=== PATIENT | female | born 1955 | race Caucasian/White ===

== ENCOUNTER 2017-08-05 11:55 | Emergency (ER) | payer OTHER ==
[~2017-08-05] VITALS: Ht 157.4 cm; Wt 79.8 kg
[2017-08-05] MEDS ORDERED: NORCO 5-325 TA1 EACH PO (13:54)
[2017-08-05] MEDS ORDERED: 'PARAFON FORTE500 M1 PO (13:54)
== END 2017-08-05 14:07 | disposition home or self-care (01) ==
LOC: ED 11:55
DX: S22.42XA Multiple fractures of ribs, left side, initial encounter for closed fracture (principal); S13.9XXA Sprain of joints and ligaments of unspecified parts of neck, initial encounter; S80.212A Abrasion, left knee, initial encounter; S60.512A Abrasion of left hand, initial encounter; S60.511A Abrasion of right hand, initial encounter; R51 Headache; R91.1 Solitary pulmonary nodule; X58.XXXA Exposure to other specified factors, initial encounter; Y93.89 Activity, other specified; Y92.89 Other specified places as the place of occurrence of the external cause; Y99.8 Other external cause status

== ENCOUNTER 2020-03-12 15:26 | Inpatient (IN) | payer OTHER ==
[~2020-03-12] VITALS: Ht 160 cm; Wt 51.3 kg
[~2020-03-12 15:26] MED LIST: 'PARAFON FORTE500 M1 PO; NORCO 5-325 TA1 EACH PO
[2020-03-12 15:32] VITALS: BP 138/58
[2020-03-12 15:48] LABS: HEMATOCRIT 33.5 % (37.0-47.0); MEAN CELL VOLUME 93.6 fl (81.0-99.0); MEAN CORPUSCULAR HGB CONC 33.1 g/dl (33.0-37.0); MEAN PLATELET VOLUME 10.7 fl (9.6-12.3); PLATELET COUNT AUTOMATED 318 10*3/uL (130-400); RED BLOOD COUNT 3.58 10*6/uL (4.10-5.10); RED CELL DISTRI WIDTH 12.8 % (0-14.5); WHITE BLOOD COUNT 21.3 10*3/uL (4.8-10.8)
[2020-03-12 16:00] VITALS: BP 137/44
[2020-03-12 16:07] LABS: ALBUMIN 3.1 gm/dl (3.1-4.5); ALKALINE PHOSPHATASE 75 U/L (45-117); BUN 79 mg/dl (7-24); CHLORIDE 95 mmol/L (98-107); CREATININE 1.51 mg/dL (0.55-1.02); POTASSIUM 5.4 mmol/L (3.5-5.1); SGOT/AST 9 IU/L (3-35); SGPT/ALT 19 U/L (12-78); SODIUM 128 mmol/L (136-145); TOTAL PROTEIN 6.3 gm/dL (6.4-8.2)
[2020-03-12 16:10] LABS: PLATELET SUFFICIENCY NORMAL (NORMAL); TOTAL CELLS COUNTED 100 #CELLS
[2020-03-12 16:20] LABS: TROPONIN I < 0.015 ng/ml (<0.045)
[2020-03-12 16:30] VITALS: BP 136/52
[2020-03-12 17:30] VITALS: BP 153/71
[2020-03-12 17:40] LABS: BILIRUBIN NEGATIVE (NEGATIVE); BLOOD NEGATIVE (NEGATIVE); CLARITY CLEAR (CLEAR); COLOR YELLOW (YELLOW); GLUCOSE 3+ (NEGATIVE); KETONE 3+ (NEGATIVE); LEUKO ESTERASE NEGATIVE (NEGATIVE); NITRITE NEGATIVE (NEGATIVE); SPECIFIC GRAVITY 1.015 (1.005-1.030); UROBILINOGEN 0.2 E.U./dl (0.2-1.0)
[2020-03-12 17:41] LABS: WBC 0-2 wbc/hpf (0-5)
[2020-03-12 17:42] LABS: BACTERIA TRACE
[2020-03-12 18:00] VITALS: BP 144/87
--- NOTE | 2020-03-12 18:29 | NUR ---
PATIENT PROVIDED BED BATH BY THIS RN
--- NOTE | 2020-03-12 18:33 | NUR ---
SCATTERED SCABS TO BUE. SKIN TEAR TO RIGHT FOREARM. RASH TO BUTTOCKS. PATIENT REFUSING PHOTOS OF THESE AREAS.
[2020-03-12 19:37] VITALS: BP 124/57
--- NOTE | 2020-03-12 19:37 | NUR ---
A 64, admitted to ICCU, under the services of LIDIA Lovell DO with a diagnosis of DKA. Chief complaint is noncompliance with insulin x 4 months, acetone on breath, and very unkempt. First glucose 680 with acetone 1:32. Patient arrived via stretcher from [place]. Monitor applied. Initial assessment completed. Pt only answers few questions. Vital signs taken and recorded. LIDIA LOVELL DO notified of admission to the unit. Orders received. See assessment for past medical history, medications and allergies. Patient and/or family oriented to unit. [facility] ICCU visitation policy reviewed. Clothing/patient valuable form completed. JASMIN STEARNS
--- NOTE | 2020-03-12 19:50 | NUR ---
IVF AND INSULIN GTT STARTED ORDERED. BEDSIDE GLUCOSE IS 450 AND INSULIN GTT STARTED AT 8UNITS/HR. SECOND IV SITE STARTED IN RT ARM. PT AWAKE AND ALERT AND BUT DISPLAYS MINIMAL INTEREST IN ANSWERING ALL ASSESSMENT QUESTIONS AT THIS TIME. IN VIEW OF ICU STAFF. BED IN LOW POSITION WITH WHEEL LOCKS ON. CALL LIGHT IN REACH. BED EXIT ALARM ON.
--- NOTE | 2020-03-12 20:30 | NUR ---
COMPLETE BEDLINEN CHANGE DONE PT WAS INCONTINENT OF LG AMT OF URINE.
--- NOTE | 2020-03-12 21:42 | NUR ---
PT LAYING ON HER LT SIDE, DOZING. NO C/O.
--- NOTE | 2020-03-12 22:06 | NUR ---
PT'S INSULIN GTT IS AT 9 UNITS/HR.
[2020-03-12 22:46] LABS: CHLORIDE 110 mmol/L (98-107); CREATININE 1.02 mg/dL (0.55-1.02); SODIUM 138 mmol/L (136-145)
[2020-03-12 22:53] LABS: BUN 63 mg/dl (7-24); POTASSIUM 3.9 mmol/L (3.5-5.1)
--- NOTE | 2020-03-12 23:02 | NUR ---
DR PETERSON NOTIFIED OF BMP RESULTS, INSULIN GTT AT 9 UNITS/HR, AND NS AT 250CC/HR. NO NEW ORDERS RECEIVED AT THIS TIME.
--- NOTE | 2020-03-12 23:31 | NUR ---
DR BARAHONA TO PLACE ORDERS FOR SKIN TEARS RT ARM.
--- NOTE | 2020-03-12 23:53 | NUR ---
RADHIKA CARE DONE FOR INCONTINENCE OF MODERATE AMT URINE. BEDSIDE GLUC 215. INSULIN GTT 7 UNITS/HR.
[2020-03-13] VITALS: BP 108/56
--- NOTE | 2020-03-13 00:53 | NUR ---
PT'S INSULIN GTT HAS BEEN TITRATED DOWN TO 1 UNIT/HR BEDSIDE GLUCOSE 168. PT MORE CONVERSIVE AND COOPERATIVE.
[2020-03-13 02:06] LABS: BUN 54 mg/dl (7-24); CHLORIDE 114 mmol/L (98-107); CREATININE 0.81 mg/dL (0.55-1.02); POTASSIUM 3.8 mmol/L (3.5-5.1); SODIUM 141 mmol/L (136-145)
--- NOTE | 2020-03-13 02:14 | NUR ---
DR PETERSON NOTIFIED OF BMP WITH CLOSED GAP, INSULIN GTT AT 1U/HR, AND IVF.
[2020-03-13 04:00] VITALS: BP 124/66
--- NOTE | 2020-03-13 04:13 | NUR ---
INSULIN GTT 3 UNITS/HR. D5.45NS AT 150CC/HR. PT WITHOUT S&S OF HYPO/HYPERGLYCEMIA.
--- NOTE | 2020-03-13 05:43 | NUR ---
INSULIN GTT AT 4 UNITS/HR.
[2020-03-13 06:46] LABS: BUN 45 mg/dl (7-24); CHLORIDE 113 mmol/L (98-107); CREATININE 0.77 mg/dL (0.55-1.02); POTASSIUM 3.5 mmol/L (3.5-5.1); SODIUM 139 mmol/L (136-145)
--- NOTE | 2020-03-13 06:48 | NUR ---
INSULIN GTT INFUSING AT 5 UNITS/HR.
[2020-03-13 07:04] LABS: THYROID STIM HORMONE (HS) 0.728 uIU/ml (0.358-4.75)
[2020-03-13 07:33] LABS: VITAMIN D, 25-HYDROXY 33.3 ng/mL (30-100)
--- NOTE | 2020-03-13 07:50 | NUR ---
INSULIN DRIP INCREASED TO 6 UNITS FOR BS 205
[2020-03-13 07:56] LABS: BASO % 0.2 % (0.0-1.0); EOS % 0.3 % (1.0-4.0); HEMATOCRIT 24.6 % (37.0-47.0); LYMPH # 2.5 10*3/uL (1.3-4.4); LYMPH % 16.7 % (27.0-41.0); MEAN CELL VOLUME 91.8 fl (81.0-99.0); MEAN CORPUSCULAR HGB 31.3 pg (27.0-31.0); MEAN CORPUSCULAR HGB CONC 34.1 g/dl (33.0-37.0); MEAN PLATELET VOLUME 10.8 fl (9.6-12.3); MONO # 1.2 10*3/uL (0.1-1.0); MONO % 7.7 % (3.0-9.0); NEUT % 73.8 % (47.0-73.0); PLATELET COUNT AUTOMATED 257 10*3/uL (130-400); RED BLOOD COUNT 2.68 10*6/uL (4.10-5.10); RED CELL DISTRI WIDTH 13.2 % (0-14.5); WHITE BLOOD COUNT 14.9 10*3/uL (4.8-10.8)
[2020-03-13 08:00] VITALS: BP 104/56
--- NOTE | 2020-03-13 08:15 | NUR ---
AMISHA WEAVER [id number] Please refer to the physician's history and physical for past medical history, comorbid conditions, and allergies. Diagnosis: DKA Lokesh Score: 15,AT RISK WOUND DESCRIPTIONS: Wound Number: 1 Upper extremities skin dry. No open areas or drainage noted at time of assessment. [place] in color. Wound Number: 2 Location of the wound: right forearm Type of wound: skin tear Thickness: Partial Size: 1cm x 0.3cm x <0.1cm Tunneling: none Undermining: none Sinus Tract: none Presence of Exudate: None Amount: None Color: Red Odor: None Periwound Skin Appearance: Normal Wound edges: Intact scab Pain (associated with wound): none at time of assessment How does patient state this happened? pt states this was from her dog. Wound Number: 3 Location of the wound: right outer wrist Type of wound: scab Thickness: Partial Size: 0.2cm x 0.2cm x <0.1cm Tunneling: none Undermining: none Sinus Tract: none Presence of Exudate: None Amount: None Color: Red Odor: None Periwound Skin Appearance: Normal Wound edges: Closed Pain (associated with wound): none at time of assessment How does patient state this happened? pt states this was from her dog. Wound Number: 4 buttocks Red blotchy rash noted to entire buttocks at time of assessment. No drainage noted at time of assessment. No open areas noted at time of assessment. Surface the patient is resting on: Isoflex SKIN PREVENTION RECOMMENDATION: 1. Pressure redistribution support surface as appropriate 2. Elevate heels 3. Remove boots/TEDS every shift and reapply 4. Head of bed 30 degrees as tolerated 5. Assess nutrition and hydration 6. Manage moisture 7. Avoid the use of containment devices while in bed 8. Use absorptive products on surfaces limit layers of linens on bed 9. Turn and reposition every 1-2 hours in bed and every 1 hour in chair as tolerated 10. Weight shifts every 15 minutes while up in chair 11. Offloading with pillows or device to keep heels elevated off bed 12. Monitor skin at least every shift 13. Inspect under medical devices twice a day WOUND TREATMENT RECOMMENDATIONS: Consult podiatry for toenail care Aquaphor to upper extremities and buttocks daily and prn. Skin tear guidelines to right forearm: Cleane with nss aply sureprep around the wound allow to dry and apply hydrogel to wound bed and cover with optifoam gentle. Change every 2 days and prn soiling. Wheelchair cushion when out of bed. Heel raiser proboots while in bed.
--- NOTE | 2020-03-13 08:55 | NUR ---
INSULIN DRIP INCREASED TO 7 UNITS FOR BS 213
--- NOTE | 2020-03-13 09:02 | NUR ---
Dr. Beckman notified of wound care recommendations
--- NOTE | 2020-03-13 09:48 | NUR ---
SENIOR QUALITY ASSURANCE SPECIALIST SPOKE WITH DIRECTION HOME. PATIENT WAS JUST APPROVED FOR MEDICAID YESTERDAY 03/12/2020.
--- NOTE | 2020-03-13 10:07 | NUR ---
BS 173, AIDE STARTEDM INSULIN DRIP TO BE DC AT 1030
[2020-03-13 10:45] LABS: BUN 41 mg/dl (7-24); CHLORIDE 114 mmol/L (98-107); CREATININE 0.78 mg/dL (0.55-1.02); POTASSIUM 3.4 mmol/L (3.5-5.1); SODIUM 141 mmol/L (136-145)
--- NOTE | 2020-03-13 11:00 | NUR ---
Ripsaw Matcher in to talk to patient. Patient states lives at home with her son, [id number], and 2-3 grandsons. There are 4 steps in the home. Physician: Dr. Andreina Daly Pharmacy: [facility] Home health services: none Patient's level of ADLs: INDEPENDENT Patient has working utilities: yes DME: none Follow-up physician's appointment after d/c: will be made by the hospitalist nurse director upon discharge Does patient want to access PORTAL?: no Discharge plan discussed with patient. She lives at home with her family. She states she is independent in her ADLs. Discussed home health care services and she denies any home needs. Discussed she has [place] Medicaid and could qualify for services in the home and she again denies any home needs. When medically stable she will be discharged to home. She states her son will provide transportation on discharge. CHRISTIANO ADAMES
[2020-03-13 12:00] VITALS: BP 109/50
--- NOTE | 2020-03-13 13:31 | NUR ---
U NOTIFIED OF CONSULT.
[2020-03-13 14:41] LABS: BUN 38 mg/dl (7-24); CHLORIDE 110 mmol/L (98-107); SODIUM 138 mmol/L (136-145)
[2020-03-13 15:36] LABS: POTASSIUM 4.9 mmol/L (3.5-5.1)
[2020-03-13 16:00] VITALS: BP 107/48
[2020-03-13 19:14] LABS: BUN 33 mg/dl (7-24); CHLORIDE 113 mmol/L (98-107); CREATININE 0.85 mg/dL (0.55-1.02); POTASSIUM 4.5 mmol/L (3.5-5.1); SODIUM 140 mmol/L (136-145)
[2020-03-13 20:00] VITALS: BP 121/46
[2020-03-14] VITALS: BP 103/48
[2020-03-14 04:00] VITALS: BP 123/62
--- NOTE | 2020-03-14 05:46 | NUR ---
Recommend follow up for wound care in outpatient setting patient refused at this time.
[2020-03-14 06:22] LABS: BUN 24 mg/dl (7-24); CHLORIDE 113 mmol/L (98-107); CREATININE 0.59 mg/dL (0.55-1.02); POTASSIUM 4.3 mmol/L (3.5-5.1); SODIUM 141 mmol/L (136-145)
[2020-03-14 06:27] LABS: BASO % 0.3 % (0.0-1.0); EOS # 0.1 10*3/uL (0.0-0.4); EOS % 0.8 % (1.0-4.0); HEMATOCRIT 25.9 % (37.0-47.0); LYMPH # 3.4 10*3/uL (1.3-4.4); LYMPH % 30.4 % (27.0-41.0); MEAN CELL VOLUME 93.2 fl (81.0-99.0); MEAN CORPUSCULAR HGB 31.3 pg (27.0-31.0); MEAN CORPUSCULAR HGB CONC 33.6 g/dl (33.0-37.0); MEAN PLATELET VOLUME 10.5 fl (9.6-12.3); MONO # 0.9 10*3/uL (0.1-1.0); NEUT # 6.6 10*3/uL (2.3-7.9); NEUT % 59.6 % (47.0-73.0); PLATELET COUNT AUTOMATED 256 10*3/uL (130-400); RED BLOOD COUNT 2.78 10*6/uL (4.10-5.10); RED CELL DISTRI WIDTH 13.6 % (0-14.5); WHITE BLOOD COUNT 11.1 10*3/uL (4.8-10.8)
[2020-03-14 08:00] VITALS: BP 98/48
--- NOTE | 2020-03-14 11:38 | NUR ---
DR DEE NOTIFIED BY MEDICAL STUDENT OF BLOOD GLUCOSE OF 452.
--- NOTE | 2020-03-14 11:46 | NUR ---
Attempted to reach sonLudwin, with no success. Left voicemail. Awaiting return call.
[2020-03-14 12:00] VITALS: BP 115/52
--- NOTE | 2020-03-14 12:50 | NUR ---
Towel Folder in to see patient. Explained CM saw she was NOK and person to notify on Christie Garcia. Asked how they are related. They are [id number]. Discussed any home care needs and she continues to deny. When medically stable she will be discharged to home.
--- NOTE | 2020-03-14 13:19 | NUR ---
RECEIVED REPORT FROM ICU NURSE JOHNSON
--- NOTE | 2020-03-14 13:19 | NUR ---
REPORT GIVEN TO INPT RN AND PT TRANSFERED TO [phone] AT THIS TIME.
--- NOTE | 2020-03-14 13:20 | NUR ---
ASSESSMENT COMPLETE. PT COMPLAINTS OF BEING TIRED AND HUNGRY. LUNCH IS BEING ORDERED AT THIS TIME. PT ORIENTED TO ROOM AND TO THE CALL LIGHT. RESPIRATIONS ARE RELAXED AND REGULAR. CALL LIGHT NEAR PT, WILL CONTINUE TO MONITOR
[2020-03-14] MEDS ORDERED: GLUCOPHAGE1000 MG PO (14:35)
[2020-03-14] MEDS ORDERED: LISINOPRIL20 MG PO (14:35)
[2020-03-14] MEDS ORDERED: CITALOPRAM HYDR40 MG PO (14:35)
--- NOTE | 2020-03-14 14:35 | NUR ---
CALLED PT FAMILY MEMBER TO GET UPDATED MED LIST
[2020-03-14] MEDS ORDERED: BASAG SOL SQ (14:37)
[2020-03-14] MEDS ORDERED: XARELTO20 M1 PO (14:37)
--- NOTE | 2020-03-14 14:38 | NUR ---
DR DEE NOTIFIED OF UPDATED MED LIST
--- NOTE | 2020-03-14 15:32 | NUR ---
NOTIFIED DR DEE OF BLOOD SUGAR 416
[2020-03-14 16:00] VITALS: BP 120/56
--- NOTE | 2020-03-14 17:38 | NUR ---
PT BROTHER LUPE CALLED TO GET INFORMATION ON PATIENT
[2020-03-14 20:00] VITALS: BP 111/47
[2020-03-15] VITALS: BP 108/49
--- NOTE | 2020-03-15 06:08 | NUR ---
Dressing change to right forearm per physician orders. Patient tolerate dressing changes without diffcuilty. Call light within reach and bed in low position.
[2020-03-15 06:47] LABS: BASO % 0.4 % (0.0-1.0); EOS # 0.1 10*3/uL (0.0-0.4); EOS % 1.3 % (1.0-4.0); HEMATOCRIT 23.6 % (37.0-47.0); LYMPH # 2.8 10*3/uL (1.3-4.4); LYMPH % 40.2 % (27.0-41.0); MEAN CELL VOLUME 94.4 fl (81.0-99.0); MEAN CORPUSCULAR HGB 31.6 pg (27.0-31.0); MEAN CORPUSCULAR HGB CONC 33.5 g/dl (33.0-37.0); MEAN PLATELET VOLUME 10.7 fl (9.6-12.3); MONO # 0.6 10*3/uL (0.1-1.0); MONO % 8.6 % (3.0-9.0); NEUT # 3.4 10*3/uL (2.3-7.9); NEUT % 48.4 % (47.0-73.0); PLATELET COUNT AUTOMATED 245 10*3/uL (130-400); RED CELL DISTRI WIDTH 14.2 % (0-14.5)
[2020-03-15 07:03] LABS: BUN 16 mg/dl (7-24); CHLORIDE 112 mmol/L (98-107); CREATININE 0.44 mg/dL (0.55-1.02); POTASSIUM 3.4 mmol/L (3.5-5.1); SODIUM 142 mmol/L (136-145)
--- NOTE | 2020-03-15 07:30 | NUR ---
TOOK OVER CARE OF PT AT THIS TIME. PT RESTING IN BED. RESPIRATIONS EASY AND UNLABORED. NO S/S OF DISTRESS. SAFETY MEASURES IN PLACE. CALL LIGHT IN REACH.
[2020-03-15 08:00] VITALS: BP 120/64
--- NOTE | 2020-03-15 09:00 | NUR ---
Wire Sawyer in to see patient. She is sitting on the edge of her bed. Discussed home health care or [place] Medicaid services in her home and she declines. Asked about a nurse just to come and check on her when she gets home to make sure everything is ok and she declines. She states she is a little weak. Discussed therapy at home and she declines. Discussed [facility] and she does normally take an antidepressant at home. She states it does "mellow her." She states [facility] had been in and spoke to her. Her 2 years ago. Discussed her ability to care for herself at home and she states she doesn't believe she has any problems taking care of herself at home. She states her grandson, Ross, who is 18 really helps her at home. She states her other 2 grandsons do have girlfriends but they still help her. Now that she has insurance she will get her medications filled and take them as prescribed. When medically stable she will be discharged to home.
[2020-03-15 12:00] VITALS: BP 123/51
--- NOTE | 2020-03-15 12:25 | NUR ---
DR DEE GIVES OKAY TO OK ORDERS FOR VITAMIN B12 AND VITAMIN D LAB DUE TO PATIENT HAVING THESE LABS DRAWN 2 DAYS AGO. LAB NOTIFIED OF THIS.
--- NOTE | 2020-03-15 14:10 | NUR ---
Nutritional Support Services Note: Pt is noncompliant to diet and meds. Has not taken insulin for 4 months. HgbA1c 16. Encourage healthy eating and avoiding concentrated carbs. Will follow as needed. Pt declined a diet copy. Sho García Rdn Ld
--- NOTE | 2020-03-15 14:40 | NUR ---
PT RESTING IN BED. NO S/S OF DISTRESS. RESPIRATIONS EASY AND UNLABORED ON ROOM AIR. PT LETHARGIC AT THIS TIME BUT AROUSES EASILY. PT PHONE FOUND TO BE RINGING. FAMILY ON PHONE AND TALKING WITH PATIENT AT THIS TIME. ALL SAFETY MEASURES IN PLACE. CALL LIGHT IN REACH.
[2020-03-15 16:00] VITALS: BP 111/54
[2020-03-15] MEDS ORDERED: Lantus SC (17:29)
[2020-03-15] MEDS ORDERED: LISINOPRIL5 MG PO (17:29)
--- NOTE | 2020-03-15 17:30 | NUR ---
Discharge instructions reviewed with patient/family. Patient receptive and verbalizes understanding. Follow-up care arranged. Written instructions given to patient/family. DMITRY BORRERO
--- NOTE | 2020-03-15 18:00 | NUR ---
PT REFUSING DISCHARGE PHOTOS AT THIS TIME.
== END 2020-03-15 18:03 | disposition home health service (06) | DRG 420 ==
LOC: ED 15:26 → ICCU 17:25 → 5E 17:25 → EDHOLD 17:25 → ICCU 17:51 → 5E 03-14 13:00
PROVIDERS: Emergency Medicine; Internal Medicine; ADMIT Family Medicine
PROC: 0HBRXZZ Excision of Toe Nail, External Approach (ICD-10-PCS; principal; 2020-03-13)
PROC: 0HBRXZZ Excision of Toe Nail, External Approach (ICD-10-PCS; 2020-03-13)
PROC: 0HBRXZZ Excision of Toe Nail, External Approach (ICD-10-PCS; 2020-03-13)
PROC: 0HBRXZZ Excision of Toe Nail, External Approach (ICD-10-PCS; 2020-03-13)
PROC: 0HBRXZZ Excision of Toe Nail, External Approach (ICD-10-PCS; 2020-03-13)
PROC: 0HBRXZZ Excision of Toe Nail, External Approach (ICD-10-PCS; 2020-03-13)
PROC: 0HBRXZZ Excision of Toe Nail, External Approach (ICD-10-PCS; 2020-03-13)
PROC: 0HBRXZZ Excision of Toe Nail, External Approach (ICD-10-PCS; 2020-03-13)
PROC: 0HBRXZZ Excision of Toe Nail, External Approach (ICD-10-PCS; 2020-03-13)
PROC: 0HBRXZZ Excision of Toe Nail, External Approach (ICD-10-PCS; 2020-03-13)
DX: E11.10 Type 2 diabetes mellitus with ketoacidosis without coma (principal); N17.0 Acute kidney failure with tubular necrosis; E87.5 Hyperkalemia; D64.9 Anemia, unspecified; I10 Essential (primary) hypertension; R65.11 Systemic inflammatory response syndrome (SIRS) of non-infectious origin with acute organ dysfunction; F33.3 Major depressive disorder, recurrent, severe with psychotic symptoms; E83.51 Hypocalcemia; B35.1 Tinea unguium; E87.6 Hypokalemia; F41.9 Anxiety disorder, unspecified; I48.0 Paroxysmal atrial fibrillation; F17.210 Nicotine dependence, cigarettes, uncomplicated; T38.3X6A Underdosing of insulin and oral hypoglycemic [antidiabetic] drugs, initial encounter; Y92.89 Other specified places as the place of occurrence of the external cause; Z90.49 Acquired absence of other specified parts of digestive tract; Z90.710 Acquired absence of both cervix and uterus; Z83.3 Family history of diabetes mellitus; Z79.4 Long term (current) use of insulin; Z71.6 Tobacco abuse counseling; Z82.49 Family history of ischemic heart disease and other diseases of the circulatory system

== ENCOUNTER 2020-03-15 18:05 | Inpatient (IN) | payer OTHER ==
[~2020-03-15] VITALS: Ht 156.2 cm; Wt 55.2 kg
[~2020-03-15 18:05] MED LIST changes: +BASAG SOL SQ; +CITALOPRAM HYDR40 MG PO; +GLUCOPHAGE1000 MG PO; +LISINOPRIL20 MG PO; +LISINOPRIL5 MG PO; +Lantus SC; +XARELTO20 M1 PO
[2020-03-15 22:12] VITALS: BP 122/56
[2020-03-16 07:08] LABS: BASO % 0.3 % (0.0-1.0); EOS # 0.1 10*3/uL (0.0-0.4); EOS % 1.2 % (1.0-4.0); HEMATOCRIT 23.6 % (37.0-47.0); LYMPH # 3.3 10*3/uL (1.3-4.4); LYMPH % 43.4 % (27.0-41.0); MEAN CELL VOLUME 94.8 fl (81.0-99.0); MEAN CORPUSCULAR HGB 31.7 pg (27.0-31.0); MEAN CORPUSCULAR HGB CONC 33.5 g/dl (33.0-37.0); MEAN PLATELET VOLUME 10.3 fl (9.6-12.3); MONO # 0.6 10*3/uL (0.1-1.0); MONO % 8.2 % (3.0-9.0); NEUT # 3.4 10*3/uL (2.3-7.9); NEUT % 45.6 % (47.0-73.0); NUCLEATED RED BLOOD CELL 0.3 % (0.0-0.0); PLATELET COUNT AUTOMATED 279 10*3/uL (130-400); RED BLOOD COUNT 2.49 10*6/uL (4.10-5.10); RED CELL DISTRI WIDTH 14.1 % (0-14.5); WHITE BLOOD COUNT 7.6 10*3/uL (4.8-10.8)
[2020-03-16 07:43] LABS: ALBUMIN 2.3 gm/dl (3.1-4.5); ALKALINE PHOSPHATASE 55 U/L (45-117); BUN 12 mg/dl (7-24); CHLORIDE 107 mmol/L (98-107); CHOLESTEROL 142 mg/dL (<200); CREATININE 0.55 mg/dL (0.55-1.02); HDL CHOLESTEROL 41 mg/dl (40-60); LDL CHOLESTEROL 71 mg/dL (9-159); POTASSIUM 3.9 mmol/L (3.5-5.1); SGOT/AST 15 IU/L (3-35); SGPT/ALT 16 U/L (12-78); SODIUM 139 mmol/L (136-145); TOTAL PROTEIN 4.8 gm/dL (6.4-8.2); TRIGLYCERIDES 151 mg/dl (<150); VLDL CHOLESTEROL 30 mg/dL (6-40)
[2020-03-16 08:00] VITALS: BP 127/57
[2020-03-16 20:00] VITALS: BP 112/60
[2020-03-16 20:11] LABS: BILIRUBIN NEGATIVE (NEGATIVE); BLOOD 1+ (NEGATIVE); CLARITY SL CLOUDY (CLEAR); COLOR YELLOW (YELLOW); GLUCOSE 2+ (NEGATIVE); KETONE NEGATIVE (NEGATIVE); NITRITE POSITIVE (NEGATIVE); PH 6.5 (5.0-9.0); UROBILINOGEN 0.2 E.U./dl (0.2-1.0)
[2020-03-16 20:12] LABS: LEUKO ESTERASE TRACE (NEGATIVE)
[2020-03-16 20:19] LABS: WBC 51-100 wbc/hpf (0-5)
[2020-03-16 20:20] LABS: BACTERIA 3+
[2020-03-17 07:52] VITALS: BP 118/57
[2020-03-17 20:00] VITALS: BP 112/58
[2020-03-18 07:50] VITALS: BP 104/68
[2020-03-18 20:00] VITALS: BP 124/62
[2020-03-19 08:00] VITALS: BP 118/62
[2020-03-19] MEDS ORDERED: CITALOPRAM20 MG PO (08:33)
[2020-03-19] MEDS ORDERED: ARIPIPRAZOLE2 MG PO (08:33)
[2020-03-19] MEDS ORDERED: CEFDINIR300 MG PO (11:17)
[2020-03-19] MEDS ORDERED: OMNICEF300 MG PO (12:25)
== END 2020-03-19 12:54 | disposition home or self-care (01) | DRG 751 ==
LOC: 3N 18:05
PROVIDERS: ADMIT Psychiatry & Neurology Psychiatry
DX: F33.2 Major depressive disorder, recurrent severe without psychotic features (principal); I10 Essential (primary) hypertension; E87.6 Hypokalemia; E87.8 Other disorders of electrolyte and fluid balance, not elsewhere classified; E44.0 Moderate protein-calorie malnutrition; E83.39 Other disorders of phosphorus metabolism; E11.65 Type 2 diabetes mellitus with hyperglycemia; F41.9 Anxiety disorder, unspecified; I48.0 Paroxysmal atrial fibrillation; D64.9 Anemia, unspecified; F17.210 Nicotine dependence, cigarettes, uncomplicated; Z71.6 Tobacco abuse counseling; Z90.710 Acquired absence of both cervix and uterus; Z83.3 Family history of diabetes mellitus; Z82.49 Family history of ischemic heart disease and other diseases of the circulatory system; Z90.49 Acquired absence of other specified parts of digestive tract; Z79.899 Other long term (current) drug therapy; Z03.818 Encounter for observation for suspected exposure to other biological agents ruled out